=== PATIENT | male | born 1975 | race Caucasian/White ===

== ENCOUNTER 2024-06-11 13:25 | Emergency (ER) | payer OTHER, SELFPAY ==
[2024-06-11 13:26] VITALS: BMI 21.5
[2024-06-11 13:33] VITALS: BP 121/77; PULSE 62; RESP 20; TEMP 36.8; O2SAT 100; BMI 21.6
--- NOTE | 2024-06-11 13:46 | XR_ITS ---
Examination: PA lateral chest 2 views Technique: Upright PA lateral chest 2 views Exam date and time: June 11, 2024 1413 hrs. Indications: Bilateral rib pain today. Findings: Normal heart size No pneumothorax Clavicles ribs appear intact as well as thoracic vertebral bodies Impression: No active disease
[2024-06-11] MEDS: DIAZEPAM 5 MG TABLET 10 MG PO (13:53)
[2024-06-11] MEDS: HYDROcodone/APAP 5/325 TABLET 1 TAB PO (13:53)
[2024-06-11] MEDS: KETOROLAC INJ 30 MG/ML VIAL IM (13:54)
--- NOTE | 2024-06-11 14:44 | PD.EDBACK ---
ED Back Injury Pain RME/HPI General Chief Complaint: Back Pain/Injury Stated Complaint: Pain to lungs and back since this morning Time Seen by Provider: 06/11/24 13:46 Arrival date/time: 06/11/24 13:25 48-year-old male presents emergency department today complaints of bilateral flank/rib pain patient reports pain is worse with movement. Patient reports no shortness of breath no abdominal pain no nausea vomiting or diarrhea no dysuria Limitations: no limitations Related Data Previous Rx's ?Medication ?Instructions ?Recorded cephalexin 500 mg tablet 1,000 mg (2 x 500 mg) PO BID #28 05/04/21 tabs cyclobenzaprine 10 mg tablet 10 mg PO TID PRN muscle spasm 10 06/11/24 days #30 tab-caps hydrocodone 5 mg-acetaminophen 325 1 tab PO BID PRN pain #10 tabs 06/11/24 mg tablet ibuprofen 800 mg tablet 800 mg PO TID PRN pain #30 tabs 06/11/24 Allergies Allergy/AdvReac Type Severity Reaction Status Date / Time No Known Allergies Allergy Verified 05/04/21 13:03 Review of Systems Review of Systems Systems Reviewed: All systems reviewed, normal except as documented Constitutional Constitutional: Reports system reviewed and no additional complaints, except as documented, Denies fever(s) and Denies headache(s) Eyes Eyes: Reports system reviewed and no additional complaints, except as documented and Denies blurry vision ENT Ears, Nose, Mouth, and Throat: Reports system reviewed and no additional complaints, except as documented, Denies headache(s), Denies nasal congestion and Denies nasal discharge Cardiovascular Cardiovascular: Reports system reviewed and no additional complaints, except as documented, Denies chest pain and Denies dyspnea Respiratory Respiratory: Reports system reviewed and no additional complaints, except as documented, Denies chest congestion, Denies cough and Denies dyspnea Gastrointestinal Gastrointestinal: Reports system reviewed and no additional complaints, except as documented and Denies abdominal pain Musculoskeletal Musculoskeletal: Reports system reviewed and no additional complaints, except as documented, Reports back pain and Reports other (Muscle spasm) Integumentary/Breasts Skin/Breast: Reports system reviewed and no additional complaints, except as documented and Denies rash Neurologic Neurologic: Reports system reviewed and no additional complaints, except as documented, Reports as per HPI and Denies headache(s) Past Medical History Past Medical History NEUROLOGIC: Negative Neurological Disorders CARDIAC: Negative Cardiac Disorders or Congestive Heart Failure RESPIRATORY: Negative Chronic Obstructive Pulmonary Disease (COPD) GASTROINTESTINAL: Negative Gastrointestinal Disorders GENITOURINARY: Negative Genitourinary Disorders or Renal Disease MUSCULOSKELETAL: Negative Musculoskeletal Disorders ENDOCRINE: Negative Diabetes Mellitus Type 1 or Diabetes Mellitus Type 2 HEMATOLOGIC: Negative Blood Disorders OTHER HISTORY: Negative Autoimmune Disease Social History SMOKING STATUS: Never smoker ED Exam General Limitations: Present no limitations General appearance: Present alert and in no apparent distress Head Head exam: Present atraumatic, normocephalic and normal inspection Eye Eye exam: Present normal appearance, PERRL and EOMI; Absent conjunctival injection ENT ENT exam: Present normal exam, normal oropharynx and mucous membranes moist Neck Neck exam: Present normal inspection, full ROM and trachea midline Chest Chest inspection: Present normal inspection and symmetric chest wall rise Respiratory Respiratory exam: Present normal lung sounds bilaterally; Absent respiratory distress Cardiovascular Cardiovascular exam: Present regular rate, normal rhythm and normal heart sounds; Absent bradycardia, tachycardia or irregular rhythm Abdominal Exam Abdominal exam: Present soft and normal bowel sounds; Absent distention, tenderness, guarding, rebound or rigidity Extremities Exam Extremities exam: Present normal inspection and full ROM Back Exam Back exam: Present normal inspection, full ROM, muscle spasm and paraspinal tenderness; Absent vertebral tenderness Back 1 view image:  1. Muscle spasm 2. Muscle spasm Neurological Exam Neurological exam: Present alert, oriented X3 and CN II-XII intact Psychiatric Psychiatric exam: Present normal affect and normal mood Skin Skin exam: Present warm, dry, intact and normal color Course Quality Measures none Orders Category Date Time Status XR chest 2V Stat Exams 06/11/24 13:46 Completed Diazepam [Valium] Med 06/11/24 13:46 Discontinued 10 mg PO X1 ONE HYDROcodone*/APAP 5/325 [[place] 5/325] Med 06/11/24 13:46 Discontinued 1 tab PO X1 ONE Ketorolac Inj [Toradol Inj] Med 06/11/24 13:46 Discontinued 30 mg IM X1 ONE Vital Signs Vital signs: Vital Signs Temperature 98.2 F 06/11/24 13:33 Pulse Rate 62 06/11/24 13:33 Respiratory Rate 20 06/11/24 13:33 Blood Pressure 121/77 06/11/24 13:33 Pulse Oximetry (%) 100 06/11/24 13:33 Oxygen Delivery Method Room Air 06/11/24 13:33 O2 saturation 100% room air within normal limits Back Pain / Injury MDM Narrative MDM Narrative:: 48-year-old male presents emergency department today complaints of bilateral flank/rib pain patient reports pain is worse with movement. 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 patient reports pain and grimaces with movement X-ray of the chest obtained no acute emergent findings noted Patient given pain medication as well as muscle relaxers he does report symptoms improved As patient has no nausea or vomiting chest pain or shortness of breath patient be discharged home at this time I explained to the patient if symptoms persist or worsen return to the ER immediately for further evaluation Patient data External records reviewed:: [facility] previous records Clinical information provided by:: patient Social determinants that could affect healthcare access:: none Patient has the following chronic illnesses:: None How is presenting disease/condition affected by chronic disease/condition?: no chronic disease Evaluation data The following diagnostics were reviewed and interpreted by me:: radiology exam(s) Lab and/or radiology exams considered but not ordered:: Radiology obtain Interpretation Summary: Reviewed by me Medications / Prescriptions Medications or Prescriptions considered but not ordered:: Given Medication administrations:: Medication Administration History Discontinued Medications Hydrocodone Bitart/Acetaminophen (Hydrocodone/Apap 5/325 Tablet) 1 tab PO X1 ONE Stop: 06/11/24 13:47 Last Admin: 06/11/24 13:53 Dose: 1 tab Documented By: Diazepam (Diazepam 5 Mg Tablet) 10 mg PO X1 ONE Stop: 06/11/24 13:47 Last Admin: 06/11/24 13:53 Dose: 10 mg Documented By: Ketorolac Tromethamine (Ketorolac Inj 30 Mg/Ml Vial) 30 mg IM X1 ONE Stop: 06/11/24 13:47 Last Admin: 06/11/24 13:54 Dose: 30 mg Documented By: Given Consultations Consultation(s) initiated? (list below): No Diagnosis Differential diagnosis back pain/injury: strain of lumbar region, thoracic back pain and other Most likely diagnosis given after review of the tests above:: Back pain, muscle spasm Admission Indicated Admission indicated?: not indicated Admission Request Was there a request for admission?: No Disposition Plan Disposition Plan: Discharge Discharge Attestation Discharge Attestation: The patient and all family members were given an opportunity to ask questions and understood the discharge instructions. Discharge instructions specifically effects, indications for sooner follow up or return to the emergency department, and the expected course of current diagnosis. Patient condition: Stable Discharge Plan Plan Patient Disposition: HOME (Self Care) Disposition Comment: Stable Prescriptions/Referrals Prescriptions/Med Rec: New cyclobenzaprine 10 mg tablet 10 mg PO TID PRN (Reason: muscle spasm) 10 Days Qty: 30 0RF ibuprofen 800 mg tablet 800 mg PO TID PRN (Reason: pain) Qty: 30 0RF hydrocodone-acetaminophen 5-325 mg tablet 1 tab PO BID MDD 10 PRN (Reason: pain) Qty: 10 0RF No Action cephalexin 500 mg tablet 1,000 mg PO BID Qty: 28 0RF Referrals: No Primary/Family,Physician [Primary Care Provider] - In 1 week Problem List Clinical Impression: Back pain Patient/Caregiver Discharge Instructions Education Materials: Back Safety: Lifting Additional Instructions: Please follow up with your primary care doctor in the next 24-48hrs for any worsening symptoms return here immediately Print Language: [place] Stand Alone Forms: Leonora Award Info., Work/School Release, Patient Portal Info Letter PA/PUBLIC SAFETY DISPATCHER Supervising Physician PA/PUBLIC SAFETY DISPATCHER Supervising Physician: Dr Mora
== END 2024-06-11 14:56 | disposition home or self-care (01) ==
PROVIDERS: Emergency Provider Emergency Medicine
DX: M54.9 Dorsalgia, unspecified (principal); R07.81 Pleurodynia
CPT/HCPCS: 71046; 96372; 99283; J1885; A9270